=== PATIENT | male | born 1950 | race Caucasian/White ===

== ENCOUNTER 2021-01-14 12:16 | Emergency (ER) | payer MEDICARE ==
[~2021-01-14] VITALS: Ht 188 cm; Wt 112.0 kg
[2021-01-14] MEDS ORDERED: CARV3.1212 PO (12:53)
[2021-01-14] MEDS ORDERED: LOSA50TA14 PO (12:53)
[2021-01-14] MEDS ORDERED: ATOR20TA37 PO (12:53)
--- NOTE | 2021-01-14 12:54 | NUR ---
PT HAS CO CHEST PAIN, STARTED LAST NIGHT. WAS AT PCP, TOLD EKG LOOKED ABNORMAL. PT ON CARD MONITOR. RESP EVEN AND UNLABORED. SLIGHT SOB W ACTIVITY. PT NOT IN DISTRESS. FAMILY AT BEDSIDE
[2021-01-14] MEDS ORDERED: ASPIRIN 81 MG TABLET EC ONE (13:20)
[2021-01-14] MEDS ORDERED: ASPIRIN 81 MG TABLET CHEW ONE (13:24)
[2021-01-14] MEDS ORDERED: ASPIRIN 81 MG TABLET CHEW PO ONE (13:30)
[2021-01-14] MEDS ORDERED: SODIUM CHLORIDE FLUSH 10ML SYR IVF ONE (13:30)
[2021-01-14 13:50] LABS: ALANINE AMINOTRANSFERASE 21 U/L (12-78); ALBUMIN 3.6 g/dL (3.4-5.0); ANION GAP 2 mmol/L (5-15); CALCIUM 8.8 mg/dL (8.5-10.1); CHLORIDE 109 mmol/L (98-107); CREATININE 0.66 mg/dL (0.7-1.3)
[2021-01-14 13:55] LABS: ALKALINE PHOSPHATASE 53 U/L (45-117); BILIRUBIN,TOTAL 0.4 mg/dL (0.2-1.0); TOTAL PROTEIN 7.2 g/dL (6.4-8.2); TROPONIN I < 0.015 ng/mL (0.000-0.045)
[2021-01-14 14:01] LABS: BASOPHILS % (AUTO) 0 % (0-1); EOSINOPHILS % (AUTO) 3 % (1-7); LYMPHOCYTES % (AUTO) 38 % (22-44); MEAN CORPUSCULAR HEMOGLOBIN 31.1 pg (27.5-34.5); MEAN CORPUSCULAR HGB CONC 34.3 g/dL (33.2-36.2); MEAN PLATELET VOLUME 10.2 fL (7.4-10.4); MONOCYTES % (AUTO) 9 % (2-9); NEUTROPHILS % (AUTO) 49 % (42-75); PLATELET COUNT 161 x10^3/uL (130-400); RED BLOOD COUNT 4.32 x10^6/uL (4.38-5.82); RED CELL DISTRIBUTION WIDTH 13.9 % (9.4-14.8)
--- NOTE | 2021-01-14 15:10 | NUR ---
PT WAITING FOR CTA
--- NOTE | 2021-01-14 15:22 | NUR ---
PT BACK FROM CT. GIVEN WARM BLANKET, CALL LIGHT IN REACH. FAMILY MEMBER PRESENT
[2021-01-14] MEDS ORDERED: OMNIPAQUE 350 MG/ML, 100ML BOTTLE ONE (15:34)
[2021-01-14] MEDS ORDERED: RIVAROXABAN 20 MG TABLET PO ONE (16:30)
[2021-01-14] MEDS ORDERED: RIVAROXABAN 20 MG TABLET ONE (16:31)
--- NOTE | 2021-01-14 16:44 | NUR ---
EDUCATED ABOUT A XARALTO AND AFIB. MEDICATD PRIOR TO DC. IV REMOVED
[2021-01-14 16:46] VITALS: BP 141/80
== END 2021-01-14 16:49 | disposition home or self-care (01) ==
LOC: ED 14:58
DX: I48.91 Unspecified atrial fibrillation (principal); I71.2 Thoracic aortic aneurysm, without rupture; R07.89 Other chest pain; I10 Essential (primary) hypertension; E78.5 Hyperlipidemia, unspecified; E78.00 Pure hypercholesterolemia, unspecified
CPT/HCPCS: 36415; 71045; 71275; 74175; 80053; 83880; 84484; 85025; 85379; 93005; 99285; Q9967